=== PATIENT | female | born 1975 | race Caucasian/White ===

== ENCOUNTER 2016-12-12 15:01 | Inpatient (IN) | payer MEDICARE ==
[~2016-12-12] VITALS: Ht 172.7 cm; Wt 91.6 kg
[2016-12-12] MEDS ORDERED: CARV6.25 PO (15:19)
[2016-12-12] MEDS ORDERED: ASPI81EC97 PO (15:19)
[2016-12-12] MEDS ORDERED: ALPR1TAB2 PO (15:19)
[2016-12-12] MEDS ORDERED: LIP80 PO (15:19)
[2016-12-12] MEDS ORDERED: NITR0.4T2 SL (15:19)
[2016-12-12] MEDS ORDERED: ALBU0.0912 INH (15:19)
[2016-12-12] MEDS ORDERED: BUPR-160 PO (15:19)
[2016-12-12] MEDS ORDERED: FLUO20CA27 PO (15:19)
[2016-12-12] MEDS ORDERED: BUS5 PO (15:19)
[2016-12-12 15:21] VITALS: BP 169/115
--- NOTE | 2016-12-12 15:57 | NUR ---
PATIENT TO BED 2 AT THIS TIME.
--- NOTE | 2016-12-12 16:00 | NUR ---
PT CAME TO ER DUE TO LOST PSYCH MEDS ON THE BUS AND IS REQUESTING MED REFILL, PT. ALSO STATES SHES EXPERIENCING ANXIETY, CP, AND THE SHAKES, PT. REPORTS DOING METH AND DRINKING ALCOHOL LAST NIGHT.PT STATES THAT SHE HAS HEADACHE THAT RADIATES TO NECK AND HER BACK.PT IS AAOX4.DENIES SOB.HOB ELEVATED;NEEDS ATTENDED;SAFETY PRECAUTION INSTITUTED;MD AWARE OF PT'S CONDITION.
--- NOTE | 2016-12-12 16:14 | NUR ---
DR FANG AT BEDSIDE
[2016-12-12] MEDS ORDERED: NACL 0.9% 1,000 ML IV ONE (16:25)
[2016-12-12] MEDS ORDERED: LORazepam 2 MG/ML VIAL IVP ONE (16:25)
[2016-12-12 16:49] LABS: BASOPHILS # (AUTO) 0.2 K/uL (0.00-0.22); BASOPHILS % (AUTO) 3.3 % (0.0-2.0); EOSINOPHILS # (AUTO) 0.1 K/uL (0-0.4); EOSINOPHILS % (AUTO) 1.3 % (0.0-4.0); HEMATOCRIT 45.8 % (36-48); HEMOGLOBIN 15.4 g/dL (12.0-16.0); LYMPHOCYTES # (AUTO) 2.2 K/uL (2.5-16.5); LYMPHOCYTES % (AUTO) 36.6 % (20.5-51.1); MEAN CORPUSCULAR HEMOGLOBIN 29 pg (27-31); MEAN CORPUSCULAR HGB CONC 34 g/dL (33-37); MEAN CORPUSCULAR VOLUME 87 fL (80-94); MONOCYTES # (AUTO) 0.3 K/uL (0.8-1.0); MONOCYTES % (AUTO) 5.9 % (1.7-9.3); NEUTROPHILS # (AUTO) 3.1 K/uL (1.8-7.7); NEUTROPHILS % (AUTO) 52.9 % (42.2-75.2); PLATELET COUNT (AUTO) 256 K/uL (140-450); RED BLOOD CELL COUNT(AUTO) 5.25 MIL/uL (4.20-5.40); RED CELL DISTRIBUTION WIDTH 12.1 % (11.6-13.7); WHITE BLOOD COUNT (AUTO) 5.9 K/uL (4.8-10.8)
--- NOTE | 2016-12-12 16:50 | NUR ---
PT RESTING IN BED. NO S/S OF ACUTE DISTRESS. PT DENIES PAIN. AAOX4. IV SITE PATENT AND INTACT. PT ORIENTED TO ROOM. CALL LIGHT WITHIN REACH. SAFETY MEASURES ENSURED. WILL CONTINUE TO MONITOR.
[2016-12-12 17:11] LABS: PROTHROMBIN TIME 9.9 secs (10.8-13.4)
[2016-12-12 17:13] LABS: ANION GAP 15.6 (8-16); CALCIUM 9.1 mg/dL (8.5-10.1); CARBON DIOXIDE 24.4 mmol/L (21-32); CHLORIDE 99 mmol/L (98-107); CREATININE 0.8 mg/dL (0.6-1.3); GFR ARICAN-AMERICAN 101 mL/min (>90); GFR NON ARICAN-AMERICAN 83 mL/min (>90); GLUCOSE 76 mg/dL (74-106); SODIUM SERUM 136 mmol/L (136-145); UREA NITROGEN, BLOOD 13 mg/dL (7-18)
[2016-12-12 17:19] LABS: ACETAMINOPHEN < 0.5 ug/ml (10-30); ALANINE AMINOTRANSFERASE 47 U/L (12-78); ALBUMIN 4.7 g/dL (3.4-5.0); ALCOHOL, BLOOD < 3 mg/dL (<3); ALKALINE PHOSPHATASE 63 U/L (46-116); ASPARTATE AMINOTRANSFERASE 33 U/L (15-37); SALICYLATE < 2.8 mg/dL (2.8-20.0); TOTAL BILIRUBIN 1.9 mg/dL (0.0-1.0); TOTAL PROTEIN, SERUM 8.4 g/dL (6.4-8.2)
--- NOTE | 2016-12-12 17:20 | NUR ---
PT LYING ON BED COMFORTABLY;NO ACUTE DISTRESS NOTED AT THIS TIME.FRIEND AT BEDSIDE.WILL CONTINUE TO MONITOR PT.
[2016-12-12] MEDS ORDERED: POTASSIUM CHLORIDE 10 MEQ TABER PO ONE (17:30)
[2016-12-12 17:38] LABS: AMPHETAMINE, URINE POS. ng/ml (NEG <=1000); BARBITURATE, URINE NEG. ng/ml (NEG <=200); BENZODIAZEPINE, URINE NEG. ng/mL (NEG <=200); CANNABINOID, URINE POS. ng/mL (NEG <=50); COCAINE, URINE NEG. ng/mL (NEG <=300); OPIATE, URINE NEG. ng/mL (NEG <=2000); PHENCYCLIDINE SCREEN,URINE NEG. ng/mL (NEG <=25)
[2016-12-12] MEDS ORDERED: ENOXAPARIN 80 MG/0.8 ML SYR SUBQ ONE (17:40)
[2016-12-12] MEDS ORDERED: ASPIRIN 81 MG TAB.CHEW PO ONE (17:40)
--- NOTE | 2016-12-12 18:27 | NUR ---
REPORT GAVE TO FELICIA CURRY
--- NOTE | 2016-12-12 18:43 | NUR ---
Patient will be admitted to care of . Admited to tele. Will go to room 107-a. Belongings list completed. Report to ansley ma.
[2016-12-12 19:01] VITALS: BP 144/80
--- NOTE | 2016-12-12 19:23 | NUR ---
ENDORSED PLAN OF CARE TO NIGHT RN. PT REMAINS IN STABLE CONDITION.
--- NOTE | 2016-12-12 19:24 | NUR ---
RECEIVED PT IN STABLE CONDITION FROM FELICIA CURRY. NO SOB, NO SIGNS OF DISTRESS. PT IS AOX4, AMBULATORY. VS STABLE ON ROOM AIR. PT C/O 8/ PAIN, WILL MEDICATE PER MD ORDER. IV TO RT AC 20G PATENT, ASYMPTOMATIC, INTACT, SALINE LOCKED. PT HAS SCABS TO BILATERAL KNEES, LT THIGH, AND RT ANKLE. ORIENTED PT TO ROOM AND UNIT. PLAN OF CARE DISCUSSED WITH PT. SAFETY MEASURES IN PLACE. CALL LIGHT WITHIN REACH.WILL CONTINUE TO MONITOR.
[2016-12-12] MEDS ORDERED: ACETAMINOPHEN 325 MG TAB PO PRN (19:45)
[2016-12-12] MEDS ORDERED: ONDANSETRON 4 MG/2 ML VIAL IVP PRN (19:45)
[2016-12-12] MEDS ORDERED: ALPRAZolam 0.5 MG TAB PO SCH (19:45)
[2016-12-12] MEDS ORDERED: ALBUTEROL HFA MDI 90 MCG/ACTUATION 8 GM INH SCH (19:45)
[2016-12-12] MEDS ORDERED: NITROGLYCERIN 0.4 MG TAB SL PRN (19:45)
[2016-12-12] MEDS ORDERED: POTASSIUM CHLORIDE 10 MEQ TABER PO SCH (20:00)
[2016-12-12] MEDS ORDERED: NICOTINE TRANSD SYS 14 MG/24 HR PATCH TD SCH (20:27)
[2016-12-12] MEDS: ZOLPIDEM 5 MG TAB PO PRN (21:33)
[2016-12-12] MEDS: CARVEDILOL 6.25 MG TAB PO SCH (21:33)
[2016-12-12] MEDS: HYDROcodone/APAP 5/325 MG 1 TAB TAB PO PRN (21:33)
[2016-12-12] MEDS: busPIRone 5 MG TAB PO SCH (21:34)
--- NOTE | 2016-12-12 21:34 | NUR ---
PT TOLERATED DUE MEDS WELL. NO SOB, NO SIGNS OF DISTRESS, IV SITE ASYMPTOMATIC, INTACT, SALINE LOCKED. MEDICATED PT FOR PAIN AND GAVE SLEEP AID PER MD ORDER. GAVE PT FOOD AND DRINKS. PLAN OF CARE DISCUSSED WITH PT. SAFETY MEASURES IN PLACE. CALL LIGHT WITHIN REACH. WILL CONTINUE TO MONITOR.
[2016-12-12 22:34] VITALS: BP 123/78
[2016-12-13] VITALS: BP 117/87
--- NOTE | 2016-12-13 | NUR ---
NO DISTRESS/SOB/WHEEZING NOTED AT THIS TIME. NO INDICATION FOR MDI PRN TX.
--- NOTE | 2016-12-13 00:05 | NUR ---
VS STABLE ON ROOM AIR. NO SOB, NO SIGNS OF DISTRESS. IV SITE ASYMPTOMATIC, INTACT, SALINE LOCKED. PT DENIES PAIN AT THIS TIME. ROOM SMELLED LIKE CIGARETTE SMOKE, ASKED PT IF SHE WAS SMOKING. PT STATED SHE WAS BUT THEN FLUSHED IT DOWN THE TOILET. EDUCATED PT THAT THERE IS NO SMOKING ALLOWED IN THE HOSPITAL DUE TO LIVE OXYGEN IN ROOMS, GWEN CEDEÑO TOOK TILE DESIGNER FROM PT. EDUCATED PT THAT SMOKING INSIDE IS A FIRE HAZARD. WILL SPEAK WITH SECURITY TO TALK TO PT ABOUT SMOKING POLICY. PLAN OF CARE DISCUSSED WITH PT. SAFETY MEASURES IN PLACE. CALL LIGHT WITHIN REACH. WILL CONTINUE TO MONITOR.
--- NOTE | 2016-12-13 00:20 | NUR ---
SECURITY AT BEDSIDE SPEAKING WITH PT.
[2016-12-13 00:57] LABS: CREATINE KINASE MB 2.4 ng/mL (0-3.6)
--- NOTE | 2016-12-13 01:03 | NUR ---
CALL FROM LAB, PTS TROPONIN INCREASED TO 0.158, WILL PAGE MD TO MAKE AWARE.
--- NOTE | 2016-12-13 01:05 | NUR ---
PAGED MD CHAVEZ TO MAKE AWARE OF ELEVATED TROPONIN. WAITING FOR CALL BACK.
--- NOTE | 2016-12-13 01:09 | NUR ---
SPOKE WITH MD CHAVEZ. MADE AWARE OF 2ND TROPONIN INCREASED TO 0.158. CLARIFIED THAT PT HAS LOVENOX AND HAS AN ECHO ORDERED. NO OTHER ORDERS GIVEN. MD TO SEE PT TOMORROW.
--- NOTE | 2016-12-13 02:16 | NUR ---
PT ASLEEP IN BED. NO SOB, NO SIGNS OF DISTRESS. IV SITE ASYMPTOMATIC, INTACT, SALINE LOCKED. SAFETY MEASURES IN PLACE. CALL LIGHT WITHIN REACH. WILL CONTINUE TO MONITOR.
[2016-12-13 04:00] VITALS: BP 128/87
--- NOTE | 2016-12-13 04:00 | NUR ---
VS STABLE ON ROOM AIR. NO SOB, NO SIGNS OF DISTRESS. IV SITE ASYMPTOMATIC, INTACT, SALINE LOCKED. PT DENIES PAIN AT THIS TIME. PLAN OF CARE DISCUSSED WITH PT. SAFETY MEASURES IN PLACE. CALL LIGHT WITHIN REACH. WILL CONTINUE TO MONITOR.
--- NOTE | 2016-12-13 07:15 | NUR ---
ENDORSED PT IN STABLE CONDITION TO FELICIA DANG. ALL NEEDS HAVE BEEN MET AT THIS TIME.
--- NOTE | 2016-12-13 07:16 | NUR ---
RECEIVED PT AWAKE , AAOX4, NO S/S OF RESPIRATORY DISTRESS OR DISCOMFORT. WITH IV ACCESS ON RIGHT AC 20G ON SALINE LOCK [PATENT AND INTACT. SKIN IS INTACT, WITH SCABS ON BLE. DISCUSSED PLAN OF CARE, PT VERBALIZED UNDERSTANDING. CALL LIGHT WITHIN REACH, WILL CONTINUE TO MONITOR.
[2016-12-13 07:30] LABS: BASOPHILS # (AUTO) 0.1 K/uL (0.00-0.22); BASOPHILS % (AUTO) 2.3 % (0.0-2.0); EOSINOPHILS # (AUTO) 0.1 K/uL (0-0.4); EOSINOPHILS % (AUTO) 2.4 % (0.0-4.0); HEMATOCRIT 41.5 % (36-48); HEMOGLOBIN 14.3 g/dL (12.0-16.0); LYMPHOCYTES # (AUTO) 3.1 K/uL (2.5-16.5); MEAN CORPUSCULAR HEMOGLOBIN 30 pg (27-31); MEAN CORPUSCULAR HGB CONC 34 g/dL (33-37); MEAN CORPUSCULAR VOLUME 88 fL (80-94); MONOCYTES # (AUTO) 0.4 K/uL (0.8-1.0); NEUTROPHILS # (AUTO) 1.7 K/uL (1.8-7.7); NEUTROPHILS % (AUTO) 32.3 % (42.2-75.2); PLATELET COUNT (AUTO) 226 K/uL (140-450); RED BLOOD CELL COUNT(AUTO) 4.74 MIL/uL (4.20-5.40); RED CELL DISTRIBUTION WIDTH 12.5 % (11.6-13.7); WHITE BLOOD COUNT (AUTO) 5.4 K/uL (4.8-10.8)
--- NOTE | 2016-12-13 07:54 | NUR ---
PATIENT HAS BEEN SCREENED AND CATEGORIZED MODERATE RISK. PATIENT WILL BE SEEN WITHIN 3-5 DAYS OF ADMISSION. 12/15/16 TO 12/17/[address]
[2016-12-13 07:57] LABS: MAGNESIUM 2.1 mg/dL (1.8-2.4)
[2016-12-13 08:00] VITALS: BP 113/74
[2016-12-13 08:02] LABS: ANION GAP 11.1 (8-16); CALCIUM 8.3 mg/dL (8.5-10.1); CARBON DIOXIDE 27.1 mmol/L (21-32); CREATININE 0.7 mg/dL (0.6-1.3); POTASSIUM 4.2 mmol/L (3.5-5.1)
[2016-12-13 08:08] LABS: CHOL/HDL RATIO 2.7 (1-4.5)
[2016-12-13 08:44] LABS: CREATINE KINASE MB 2.5 ng/mL (0-3.6)
[2016-12-13] MEDS ORDERED: NON-FORMULARY ITEM (Bupropion HCl* (Wellbutrin Xl*) 150 MG) PO SCH (09:00)
--- NOTE | 2016-12-13 09:13 | NUR ---
NOTIFIED DR. CHAVEZ REGARDING TROPONIN LEVEL, NO NEW ORDERS. CL;A Addendum: 12/13/16 at 1055 by Rhonda Dailey RN CLARIFIED WITH DR. CHAVEZ REGARDING ALBUTEROL AND NITROGLYCERIN. WILL INFORM BLANCHE OF PHARMACY
[2016-12-13] MEDS: FOLIC ACID 1 MG TAB PO SCH (09:40)
[2016-12-13] MEDS: THIAMINE 100 MG TAB PO SCH (09:41)
[2016-12-13] MEDS: MULTIVITAMIN 1 TAB PO SCH (09:41)
[2016-12-13] MEDS: FLUoxetine 20 MG CAP PO SCH (09:41)
[2016-12-13] MEDS: ATORVASTATIN 80 MG TAB PO SCH (09:41)
[2016-12-13] MEDS: ECOTRIN 81 MG TABEC PO SCH (09:41)
[2016-12-13] MEDS: CARVEDILOL 6.25 MG TAB PO SCH ×2 (09:41→21:00)
[2016-12-13] MEDS: busPIRone 5 MG TAB PO SCH ×2 (09:41→21:11)
--- NOTE | 2016-12-13 09:41 | NUR ---
DUE MEDS GIVEN, PT TOLERATED WELL. CALL LIGHT WITH IN REACH, WILL CONTINUE TO MONITOR.
[2016-12-13] MEDS: NICOTINE TRANSD SYS 14 MG/24 HR PATCH TD SCH (09:42)
[2016-12-13] MEDS: ENOXAPARIN 40 MG/0.4 ML SYR SUBQ SCH (09:47)
--- NOTE | 2016-12-13 10:21 | NUR ---
SPOKE WITH DR ASHVIN LLOYD TO D/C PATIENT HOME AND F/U WITH IN ONE WEEK .
[2016-12-13] MEDS: HYDROcodone/APAP 5/325 MG 1 TAB TAB PO PRN ×2 (10:32→21:11)
[2016-12-13] MEDS ORDERED: ALBUTEROL 0.083% 2.5 MG/3 ML NEBU INH PRN (10:35)
[2016-12-13 12:00] VITALS: BP 102/50
--- NOTE | 2016-12-13 12:48 | NUR ---
PT ASLEEP, NO COMPLAINTS AT THIS TIME. CALL LIGHT WITHIN REACH, WILL CONTINUE TO MONITOR.
--- NOTE | 2016-12-13 14:35 | NUR ---
DR ONEAL AT NURSES' STATION
[2016-12-13] MEDS: ALPRAZolam 0.5 MG TAB PO PRN (15:54)
[2016-12-13 16:00] VITALS: BP 105/79
--- NOTE | 2016-12-13 16:57 | NUR ---
DR CHAVEZ AT BEDSIDE
--- NOTE | 2016-12-13 17:49 | NUR ---
PT AWAKE TALKING TO RELATIVE ON THE PHONE, NO COMPLAINTS AT THIS TIME. ALL NEEDS MET, WILL CONTINUE TO MONITOR.
--- NOTE | 2016-12-13 19:02 | NUR ---
RECEIVED PT FROM LAURENCE DUARTE FOR CONTINUITY OF CARE AT BEDSIDE. PT NOTED STABLE WATCHING TV AND EATING SANDWICH.
--- NOTE | 2016-12-13 19:26 | NUR ---
ENDORSED PT TO FELICIA MONTAÑO IN STABLE CONDITION FOR CONTINUITY OF CARE.
--- NOTE | 2016-12-13 19:47 | NUR ---
SHIFT ASSESSMENT DONE. PT IS A/O X4, ABLE TO VERBALIZE NEEDS AND FOLLOWS COMMAND. NO ACUTE DISTRESS NOTED. DISCUSSED PLAN OF CARE WITH PT, VERBALIZED UNDERSTANDING. VITAL SIGNS TAKEN, ARE STABLE. NOTE BP AT 108/62 (S/D), ASYMPTOMATIC. PT IS AFEBRILE, NOTED ON ROOM AIR WITH OXYGEN SATURATION AT 98%. DENIES N/V/D, NO SOB, OR DENIES CHEST PAIN. NOTED LUNG SOUNDS ARE CLEAR, BOWEL SOUNDS ARE ACTIVE. SKIN INTACT. IV ACCESS TO RT AC #20G, PATENT AND INTACT, SALINE LOCKED. PT IS IN STABLE CONDITION. SAFETY PRECAUTIONS IMPLEMENTED. CALL LIGHT WITHIN EASY REACH. WILL CONTINUE TO MONITOR PT.
[2016-12-13 20:00] VITALS: BP 108/62
[2016-12-13] MEDS: buPROPion 75 MG TAB PO SCH (21:11)
--- NOTE | 2016-12-13 21:11 | NUR ---
PROVIDED PT WITH PAIN MEDICATION NEEDED, SEE eMAR. PT DENIES CHEST PAIN. CALL LIGHT STILL WITHIN REACH.
[2016-12-13] MEDS: ZOLPIDEM 5 MG TAB PO PRN (21:14)
--- NOTE | 2016-12-13 22:50 | NUR ---
PT NOTED SLEEPING, NO S/S OF DISTRESS. CALL LIGHT WITHIN REACH.
[2016-12-14] VITALS: BP 105/62
--- NOTE | 2016-12-14 00:25 | NUR ---
PT VSS REMAIN STABLE, NO ACUTE DISTRESS NOTED. WILL CONTINUE TO MONITOR. CALL LIGHT WITHIN REACH.
--- NOTE | 2016-12-14 02:25 | NUR ---
PT REMAINS ASLEEP, NO S/S OF DISTRESS.
[2016-12-14 04:00] VITALS: BP 114/68
--- NOTE | 2016-12-14 04:10 | NUR ---
VS ARE STABLE, PT C.O. PAIN. MEDICATION PROVIDED, SEE eMAR. CALL LIGHT WITHIN REACH.
[2016-12-14] MEDS: HYDROcodone/APAP 5/325 MG 1 TAB TAB PO PRN ×2 (04:20→18:21)
[2016-12-14 07:03] LABS: BASOPHILS # (AUTO) 0.1 K/uL (0.00-0.22); BASOPHILS % (AUTO) 2.2 % (0.0-2.0); EOSINOPHILS # (AUTO) 0.1 K/uL (0-0.4); EOSINOPHILS % (AUTO) 2.4 % (0.0-4.0); HEMATOCRIT 42.8 % (36-48); HEMOGLOBIN 14.1 g/dL (12.0-16.0); LYMPHOCYTES # (AUTO) 2.4 K/uL (2.5-16.5); LYMPHOCYTES % (AUTO) 47.9 % (20.5-51.1); MEAN CORPUSCULAR HEMOGLOBIN 29 pg (27-31); MEAN CORPUSCULAR HGB CONC 33 g/dL (33-37); MEAN CORPUSCULAR VOLUME 89 fL (80-94); MONOCYTES # (AUTO) 0.5 K/uL (0.8-1.0); MONOCYTES % (AUTO) 10.2 % (1.7-9.3); NEUTROPHILS # (AUTO) 1.8 K/uL (1.8-7.7); NEUTROPHILS % (AUTO) 37.3 % (42.2-75.2); PLATELET COUNT (AUTO) 365 K/uL (140-450); RED BLOOD CELL COUNT(AUTO) 4.84 MIL/uL (4.20-5.40); RED CELL DISTRIBUTION WIDTH 12.4 % (11.6-13.7); WHITE BLOOD COUNT (AUTO) 4.9 K/uL (4.8-10.8)
--- NOTE | 2016-12-14 07:25 | NUR ---
ENDORSED PT TO LAURENCE DUARTE FOR CONTINUITY OF CARE.
--- NOTE | 2016-12-14 07:26 | NUR ---
RECEIVED PT FROM FELICIA MONTAÑO ASLEEP BUT EASILY AWAKEN, NO SIGNS OF RESPIRATORY DISTRESS, PT ON ROOM AIR. WITH IV ACCESS ON RIGHT AC 20G ON SALINE LOCK PATENT AND INTACT. SKIN IS INTACT. NO COMPLAINTS OF PAIN AT THIS TIME. DISCUSSED PLAN OF CARE, PT VERBALIZED UNDERSTANDING. CALL LIGHT WITHIN REACH, WILL CONTINUE TO MONITOR.
[2016-12-14 07:43] LABS: ANION GAP 12.4 (8-16); CARBON DIOXIDE 25.1 mmol/L (21-32); CREATININE 0.8 mg/dL (0.6-1.3); POTASSIUM 3.5 mmol/L (3.5-5.1)
[2016-12-14 08:00] VITALS: BP 118/80
[2016-12-14] MEDS: FOLIC ACID 1 MG TAB PO SCH (09:03)
[2016-12-14] MEDS: busPIRone 5 MG TAB PO SCH ×2 (09:03→22:13)
[2016-12-14] MEDS: CARVEDILOL 6.25 MG TAB PO SCH ×2 (09:03→22:13)
[2016-12-14] MEDS: ECOTRIN 81 MG TABEC PO SCH (09:03)
[2016-12-14] MEDS: FLUoxetine 20 MG CAP PO SCH (09:03)
[2016-12-14] MEDS: buPROPion 75 MG TAB PO SCH ×2 (09:04→21:00)
[2016-12-14] MEDS: MULTIVITAMIN 1 TAB PO SCH (09:04)
[2016-12-14] MEDS: ATORVASTATIN 80 MG TAB PO SCH (09:04)
[2016-12-14] MEDS: NICOTINE TRANSD SYS 14 MG/24 HR PATCH TD SCH (09:05)
[2016-12-14] MEDS: ENOXAPARIN 40 MG/0.4 ML SYR SUBQ SCH (09:10)
[2016-12-14] MEDS: THIAMINE 100 MG TAB PO SCH (09:13)
--- NOTE | 2016-12-14 09:25 | NUR ---
DUE MEDS GIVEN, PT TOLERATED WELL. WITH RELATIVES AT BEDSIDE. CALL LIGHT WITHIN REACH, WILL CONTINUE TO MONITOR.
--- NOTE | 2016-12-14 10:02 | NUR ---
NOTIFIED BY LAB REGARDING MRSA NARES. PROTOCOL IN PLACE.
--- NOTE | 2016-12-14 10:37 | NUR ---
PT AWAKE TALKING TO RELATIVES AT BEDSIDE. ALL NEEDS MET AT THIS TIME. CALL LIGHT WITHIN REACH, WILL CONTINUE TO MONITOR.
[2016-12-14] MEDS: CHLORHEXADINE GLUC 2% CLOTH TP SCH (11:54)
[2016-12-14] MEDS: MUPIROCIN 2% OINT 22 GM TUBE TP SCH (11:54)
[2016-12-14 12:00] VITALS: BP 116/73
--- NOTE | 2016-12-14 12:40 | NUR ---
NICOTINE PATCH FELL OFF WHEN PT WENT TO SHOWER. APPLIED ANOTHER ONE. ALL NEEDS MET AT THIS TIME, WILL CONTINUE TO MONITOR.
--- NOTE | 2016-12-14 14:44 | NUR ---
PT SITTING ON BED TALKING TO RELATIVES. ALL NEEDS MET AT THIS TIME. CALL LIGHT WITHIN REACH, WILL CONTINUE TO MONITOR.
[2016-12-14 16:00] VITALS: BP 109/67
--- NOTE | 2016-12-14 16:05 | NUR ---
DR CHAVEZ AT BEDSIDE TO SEE PT.
--- NOTE | 2016-12-14 16:53 | NUR ---
PAGED DR CHAVEZ REGARDING TROPONIN LEVEL.
--- NOTE | 2016-12-14 16:54 | NUR ---
NOTIFIED DR CHAVEZ REGARDING TROPONIN, NO NEW ORDERS
[2016-12-14] MEDS: ALPRAZolam 0.5 MG TAB PO PRN (18:21)
--- NOTE | 2016-12-14 18:44 | NUR ---
PT COMPLAINED OF PAIN ON IV SITE AT RIGHT AC, CHANGED IV TO LEFT HAND G22 ON SALINE LOCK, PATENT AND INTACT.
--- NOTE | 2016-12-14 19:31 | NUR ---
ENDORSED PT TO FELICIA COCHRAN FOR CONTINUITY OF CARE IN STABLE CONDITION
--- NOTE | 2016-12-14 19:35 | NUR ---
RECEIVED PT FROM LAURENCE DUARTE PT IS AAOX4 AMBULATORY ON TELEMETRY SR , VOIDING WELL HL ON LEFT HAND PATENT INITIAL ASSESSMENT DONE
[2016-12-14 20:00] VITALS: BP 112/73
--- NOTE | 2016-12-14 22:00 | NUR ---
PT SLEEPING WELL KATHRYN TELMETRY SR NOT DISTRESS NOTED.
[2016-12-14] MEDS: ENOXAPARIN 100 MG/ML SYR SUBQ SCH (22:19)
[2016-12-14] MEDS: ZOLPIDEM 5 MG TAB PO PRN (22:21)
[2016-12-15] VITALS: BP 92/58
--- NOTE | 2016-12-15 01:00 | NUR ---
REMAIN STBLE NOT DISTRESS NOTED ON TELEMETRY SR
[2016-12-15 04:00] VITALS: BP 90/54
--- NOTE | 2016-12-15 04:00 | NUR ---
SPONGE BATH GIVEN LINEN CHANGE NOT DISTRESS NOTED ON TELE SB
--- NOTE | 2016-12-15 06:52 | NUR ---
PT SLEEPING DENIES ANY PAIN OR DISCOMFORT
[2016-12-15 06:53] LABS: BASOPHILS # (AUTO) 0.2 K/uL (0.00-0.22); BASOPHILS % (AUTO) 4.4 % (0.0-2.0); EOSINOPHILS # (AUTO) 0.1 K/uL (0-0.4); EOSINOPHILS % (AUTO) 2.3 % (0.0-4.0); HEMATOCRIT 40.1 % (36-48); HEMOGLOBIN 13.7 g/dL (12.0-16.0); LYMPHOCYTES # (AUTO) 2.9 K/uL (2.5-16.5); LYMPHOCYTES % (AUTO) 48.6 % (20.5-51.1); MEAN CORPUSCULAR HEMOGLOBIN 30 pg (27-31); MEAN CORPUSCULAR HGB CONC 34 g/dL (33-37); MEAN CORPUSCULAR VOLUME 87 fL (80-94); MONOCYTES # (AUTO) 0.4 K/uL (0.8-1.0); MONOCYTES % (AUTO) 7.9 % (1.7-9.3); NEUTROPHILS % (AUTO) 36.8 % (42.2-75.2); PLATELET COUNT (AUTO) 216 K/uL (140-450); RED CELL DISTRIBUTION WIDTH 12.1 % (11.6-13.7); WHITE BLOOD COUNT (AUTO) 5.6 K/uL (4.8-10.8)
--- NOTE | 2016-12-15 07:12 | NUR ---
ASSUMED CONTINUITY OF CARE. NO SIGNS AND SYMPTOMS OF ACUTE DISTRESS NOTED. INITIAL ASSESSMENT DONE. KEEP COMFORTABLE ON BED. EXPLAINED DIAGNOSIS, PLAN OF CARE, PAIN MANAGEMENT TEACHING, CONTACT ISOLATION PRECAUTION, USE OF CALL LIGHT/BED/TV/BATHROOM. VERBALIZED UNDERSTANDING. CALL LIGHT WITHIN REACH.
[2016-12-15 07:14] LABS: ANION GAP 10.5 (8-16); CALCIUM 8.2 mg/dL (8.5-10.1); CARBON DIOXIDE 27.1 mmol/L (21-32); CREATININE 0.8 mg/dL (0.6-1.3); POTASSIUM 3.6 mmol/L (3.5-5.1)
--- NOTE | 2016-12-15 07:25 | NUR ---
PAGED DR. CHAVEZ REGARDING CRITICAL TROP 0.126. LEFT CALL BACK NUMBER. INFORMED CHARGE NURSE EMERALD FROST.
--- NOTE | 2016-12-15 07:28 | NUR ---
DR. CHAVEZ CALLED, INFORMED OF PT. CRITICAL LAB RESULTS OF TROP 0.126. DR. CHAVEZ SAID TO CALL DAMION JACK AND INFORM HIM OF THE RESULTS.
--- NOTE | 2016-12-15 07:29 | NUR ---
PAGED DR. ONEAL AT AND SPOKE TO BEN. LEFT CALL BACK NUMBER. INFORMED CHARGE NURSE EMERALD FROST.
[2016-12-15 08:00] VITALS: BP 126/63
[2016-12-15] MEDS: FOLIC ACID 1 MG TAB PO SCH (08:50)
[2016-12-15] MEDS: ECOTRIN 81 MG TABEC PO SCH (08:51)
[2016-12-15] MEDS: ATORVASTATIN 80 MG TAB PO SCH (08:51)
[2016-12-15] MEDS: FLUoxetine 20 MG CAP PO SCH (08:51)
[2016-12-15] MEDS: MULTIVITAMIN 1 TAB PO SCH (08:51)
[2016-12-15] MEDS: THIAMINE 100 MG TAB PO SCH (08:51)
[2016-12-15] MEDS: busPIRone 5 MG TAB PO SCH ×2 (08:51→20:36)
[2016-12-15] MEDS: buPROPion 75 MG TAB PO SCH ×2 (08:53→20:37)
[2016-12-15] MEDS: NICOTINE TRANSD SYS 14 MG/24 HR PATCH TD SCH (08:53)
[2016-12-15] MEDS: ENOXAPARIN 100 MG/ML SYR SUBQ SCH ×2 (08:54→20:39)
[2016-12-15] MEDS: CARVEDILOL 6.25 MG TAB PO SCH ×2 (08:54→20:36)
[2016-12-15] MEDS: ALPRAZolam 0.5 MG TAB PO PRN ×2 (09:44→21:10)
[2016-12-15 12:00] VITALS: BP 121/79
[2016-12-15] MEDS ORDERED: REGADENOSON 0.4 MG/5 ML SYR IV SCH (12:30)
[2016-12-15] MEDS: MUPIROCIN 2% OINT 22 GM TUBE TP SCH (12:38)
[2016-12-15] MEDS: CHLORHEXADINE GLUC 2% CLOTH TP SCH (12:38)
--- NOTE | 2016-12-15 12:48 | NUR ---
CAMILA JACKESH CAME, INFORMED ONCE AGAIN OF CRITICAL LAB RESULTS OF TROP 0.126. NO ORDER RECEIVED. INFORMED CHARGE NURSE EMERALD FROST.
[2016-12-15 16:00] VITALS: BP 99/62
--- NOTE | 2016-12-15 16:02 | NUR ---
SPOKE WITH STORMY FROM [facility]. SHE SAID JUST FAX FACE SHEET TO THEM AT [phone], THE REVIEW GOES TO [facility]. FAXED INITIAL REVIEW TO [facility] [phone] PHONE [phone]
[2016-12-15] MEDS: HYDROcodone/APAP 5/325 MG 1 TAB TAB PO PRN (18:50)
--- NOTE | 2016-12-15 18:54 | NUR ---
NO ACUTE DISTRESS NOTED. IN STABLE CONDITION. ENDORSED TO CHARGE NURSE EMERALD FROST.
--- NOTE | 2016-12-15 19:30 | NUR ---
RECEIVED REPORT FROM CHARGE NURSE MELISSA, PATIENT IS AAOX4, SITTING UP IN BED, ON ROOM AIR, NO SOB OR SIGN OF DISTRESS AT THIS TIME, PATIENT HAS IV TO LEFT HAND 22G PATENT INTACT, SALINE LOCKED. PATIENT IS ON CONTACT PRECAUTIONS, DISCUSSED PLAN OF CARE WITH PATIENT, PATIENT VERBALIZED UNDERSTANDING, SAFETY MEASURES CHECKED, CALL LIGHT WITHIN REACH. WILL CONTINUE TO MONITOR.
[2016-12-15 20:00] VITALS: BP 140/59
--- NOTE | 2016-12-15 20:28 | NUR ---
NO DISTRESS/SOB/WHEEZING NOTED AT THIS TIME. NO INDICATION FOR HHN PRN TX.
--- NOTE | 2016-12-15 20:40 | NUR ---
PM MEDS ADMINISTERED, PATIENT TOLERATED WELL, WILL CONTINUE TO MONITOR
[2016-12-15] MEDS ORDERED: HAB14T TD (21:11)
[2016-12-15] MEDS ORDERED: LIP80 PO (21:11)
[2016-12-15] MEDS ORDERED: NITR0.4T2 SL (21:11)
[2016-12-15] MEDS: ZOLPIDEM 5 MG TAB PO PRN (21:11)
[2016-12-15] MEDS ORDERED: ALPR0.5T20 PO (21:11)
[2016-12-15] MEDS ORDERED: ZOLP5TAB1 PO (21:11)
[2016-12-15] MEDS ORDERED: MULT-405 PO (21:11)
[2016-12-15] MEDS ORDERED: CARV6.25 PO (21:11)
[2016-12-15] MEDS ORDERED: FLUO20CA27 PO (21:11)
[2016-12-15] MEDS ORDERED: BUPR-160 PO (21:11)
[2016-12-15] MEDS ORDERED: ASPI81EC97 PO (21:11)
[2016-12-15] MEDS ORDERED: FOLI1TAB90 PO (21:11)
[2016-12-15] MEDS ORDERED: BACTO TP (21:11)
[2016-12-15] MEDS ORDERED: THIA-8 PO (21:11)
[2016-12-15] MEDS ORDERED: ALBU0.0912 INH (21:11)
[2016-12-15] MEDS ORDERED: BUS5 PO (21:11)
--- NOTE | 2016-12-15 21:15 | NUR ---
DR ONEAL IN TO SEE PATIENT. WILL F/U WITH ORDERS
[2016-12-16] VITALS: BP 99/58
--- NOTE | 2016-12-16 00:19 | NUR ---
VITAL SIGN STABLE, NO SOB OR SIGN OF DISTRESS, PATIENT RESTING COMFORTABLE IN BED, CALL LIGHT WITHIN REACH. WILL CONTINUE TO MONITOR.
--- NOTE | 2016-12-16 01:30 | NUR ---
PATIENT SLEEPING COMFORTABLE IN BED, NO SOB OR SIGN OF DISTRESS AT THIS TIME, CALL LIGHT WITHIN REACH. WILL CONTINUE TO MONITOR.
[2016-12-16 04:00] VITALS: BP 120/80
--- NOTE | 2016-12-16 04:19 | NUR ---
VITAL SIGNS STABLE, PATIENT SLEEPING, NO SOB OR SIGN OF DISTRESS, CALL LIGHT WITHIN REACH. WILL CONTINUE TO MONITOR.
--- NOTE | 2016-12-16 05:19 | NUR ---
PATIENT REFUSED LAB DRAW THIS MORNING, INTEGRATED PROGRAM TEACHER STATED SHE WILL COME BACK AND TRY AGAIN LATER.
--- NOTE | 2016-12-16 07:30 | NUR ---
RECEIVED ON BED AAOX4. NO SOB NOTED. NO C/O PAIN AT THIS TIME. IV TO LT HAND PATENT AND INTACT. CHEST CLEAR. ABDOMEN SOFT, BOWEL SOUNDS PRESENT. NO EDEMA NOTED. INSTRUCTED PT TO CALL FOR ASSISTANCE, CALL LIGHT WITHIN REACH. PT VERBALIZED UNDERSTANDING.
--- NOTE | 2016-12-16 07:38 | NUR ---
ENDORSED PATIENT TO DAY RN AT BEDSIDE, PATIENT IN STABLE CONDITION
[2016-12-16 08:00] VITALS: BP 107/72
[2016-12-16 08:43] LABS: BASOPHILS # (AUTO) 0.2 K/uL (0.00-0.22); EOSINOPHILS # (AUTO) 0.1 K/uL (0-0.4); EOSINOPHILS % (AUTO) 1.5 % (0.0-4.0); HEMATOCRIT 42.7 % (36-48); HEMOGLOBIN 14.7 g/dL (12.0-16.0); LYMPHOCYTES % (AUTO) 36.6 % (20.5-51.1); MEAN CORPUSCULAR HEMOGLOBIN 30 pg (27-31); MEAN CORPUSCULAR HGB CONC 34 g/dL (33-37); MEAN CORPUSCULAR VOLUME 86 fL (80-94); MONOCYTES # (AUTO) 0.5 K/uL (0.8-1.0); MONOCYTES % (AUTO) 8.9 % (1.7-9.3); NEUTROPHILS # (AUTO) 2.7 K/uL (1.8-7.7); PLATELET COUNT (AUTO) 228 K/uL (140-450); RED BLOOD CELL COUNT(AUTO) 4.97 MIL/uL (4.20-5.40); WHITE BLOOD COUNT (AUTO) 5.5 K/uL (4.8-10.8)
[2016-12-16] MEDS: NICOTINE TRANSD SYS 14 MG/24 HR PATCH TD SCH ×2 (09:00→09:42)
[2016-12-16] MEDS: CARVEDILOL 6.25 MG TAB PO SCH (09:00)
[2016-12-16] MEDS: ATORVASTATIN 80 MG TAB PO SCH (09:34)
[2016-12-16] MEDS: MULTIVITAMIN 1 TAB PO SCH (09:35)
[2016-12-16] MEDS: FLUoxetine 20 MG CAP PO SCH (09:35)
[2016-12-16] MEDS: busPIRone 5 MG TAB PO SCH (09:35)
[2016-12-16] MEDS: THIAMINE 100 MG TAB PO SCH (09:35)
[2016-12-16] MEDS: HYDROcodone/APAP 5/325 MG 1 TAB TAB PO PRN (09:36)
[2016-12-16] MEDS: ECOTRIN 81 MG TABEC PO SCH (09:36)
[2016-12-16] MEDS: buPROPion 75 MG TAB PO SCH (09:37)
[2016-12-16] MEDS: ENOXAPARIN 100 MG/ML SYR SUBQ SCH (09:38)
[2016-12-16] MEDS: FOLIC ACID 1 MG TAB PO SCH (09:40)
[2016-12-16 09:47] LABS: ANION GAP 14.7 (8-16); CALCIUM 8.7 mg/dL (8.5-10.1); CARBON DIOXIDE 25.8 mmol/L (21-32); CREATININE 0.8 mg/dL (0.6-1.3); POTASSIUM 3.5 mmol/L (3.5-5.1)
--- NOTE | 2016-12-16 10:30 | NUR ---
PT STATED SHE IS FEELING DIZZY FROM THE [place] THAT SHE TOOK EARLIER. VITAL SIGNS STABLE. NO SOB NOTED. WILL CONTINUE TO MONITOR.
--- NOTE | 2016-12-16 11:30 | NUR ---
PT STATED SHE WILL BE ABLE TO GO HOME AFTER SHE HAVE HER LUNCH. PT ALSO STATED SHE WILL NEED TWO BUS PASSES TO TAKE HER TO [place] [employer] [facility] AND FROM THERE ANOTHER ONE TO TAKE HER TO [place]. ALL FROM ADMIN MADE AWARE. DISCHARGE INSTRUCTIONS AND PRESCRIPTIONS GIVEN TO PT WHICH VERBALIZED FULL UNDERSTANDING OF THE INSTRUCTION GIVEN AND THE NEED TO FOLLOW UP WITH PCP WITHIN 7 DAYS. PT ALSO STATED SHE WILL GO TO A REHAB CENTER FOR ALCOHOLICS AFTER SHE PICKS UP HER STUFF IN [place]. ARM BANDS AND IV REMOVED, CANNULA TIP INTACT.
--- NOTE | 2016-12-16 13:00 | NUR ---
PT FOUND HER PAIR OF BLACK KEDS UNDER THE BED. PT ALREADY FINISHED HER LUNCH, FOOD CONSUMED 100%, TOLERATED WELL. PT WANTED TO KEEP HER ARM BANDS (EXTRA ONE GIVEN), SO SHE CAN SAY TO THE REHAB CENTER THAT SHE WAS ADMITTED IN [facility]. PROVIDED PT THE 2 BUS PASSES. PRINT OUT OF [facility] BUS/TRANSIT LOCATION ALSO PROVIDED.
--- NOTE | 2016-12-16 13:23 | NUR ---
PT ESCORTED TO THE FRONT LOBBY BY ELECTRICAL EQUIPMENT TECHNICIAN, PT AMBULATORY. NO SOB NOTED. NO COMPLAINTS MADE. PT IS DISCHARGE HOME TO SELF IN STABLE CONDITION, AAOX4. ALL QUESTIONS ANSWERED.
--- NOTE | 2016-12-16 14:02 | NUR ---
FAXED CONCURRENT REVIEW AND DISCHARGE SUMMARY TO [facility] [phone] PHONE [phone]
== END 2016-12-16 13:23 | disposition home or self-care (01) | DRG 775 ==
LOC: MED 15:01 → MTU 18:08
PROVIDERS: ADMIT Preventive Medicine Preventive Medicine/Occupational Environmental Medicine; ATTEND Preventive Medicine Preventive Medicine/Occupational Environmental Medicine
DX: F10.239 Alcohol dependence with withdrawal, unspecified (principal); E83.52 Hypercalcemia; I10 Essential (primary) hypertension; J45.909 Unspecified asthma, uncomplicated; E78.5 Hyperlipidemia, unspecified; F41.9 Anxiety disorder, unspecified; F15.10 Other stimulant abuse, uncomplicated; R51 Headache; I25.10 Atherosclerotic heart disease of native coronary artery without angina pectoris; R74.0 Nonspecific elevation of levels of transaminase and lactic acid dehydrogenase [LDH]; R00.0 Tachycardia, unspecified; F12.10 Cannabis abuse, uncomplicated; Z22.322 Carrier or suspected carrier of Methicillin resistant Staphylococcus aureus; Z79.82 Long term (current) use of aspirin; Z79.899 Other long term (current) drug therapy
CPT/HCPCS: 36415; 71010; 80048; 80053; 80305; 81025; 82550; 82553; 83735; 84100; 84484; 85025; 85610; 85730; 87081; 93005; 96361; 96372; 96374; 99285; G0480; G0482; J1650; J2060; J2785; J7030; Q0092

== ENCOUNTER 2017-01-17 02:46 | Emergency (ER) | payer MEDICARE ==
[~2017-01-17] VITALS: Ht 172.7 cm; Wt 99.8 kg
[~2017-01-17 02:46] MED LIST: ALPRAZOLAM0.5 M1 PO; AMBIEN5 M1 PO; ASPIR 8181 MG PO; BACTROBAN 2%20 MG/GM TP; BUSPAR5 M1 PO; COREG6.25 MG PO; HABITROL T14 MG/24 H TD; LIPITOR80 MG PO; NATURE'S BLEND F1 M1 PO; NATURE'S BLEND100 M2 PO; NITROSTAT0.4 M1 SL; PROVENTIL HFA M18 GM INH; PROZAC20 M2 PO; TAB-A-VITE1 TA3 PO; WELLBUTRIN XL150 MG PO; XANAX1 MG PO
[2017-01-17 03:08] VITALS: BP 145/90
--- NOTE | 2017-01-17 03:36 | NUR ---
PT TAKEN TO DHRUVAY FROM SATHISH
--- NOTE | 2017-01-17 03:41 | NUR ---
PT RETURN FROM XRAY TO LOBBY
--- NOTE | 2017-01-17 04:38 | NUR ---
PT TAKEN TO OF3
--- NOTE | 2017-01-17 04:51 | NUR ---
Dr. Anton evaluating patient
[2017-01-17] MEDS ORDERED: predniSONE 20 MG TAB PO ONE (04:55)
[2017-01-17] MEDS ORDERED: ALBUTEROL SULFATE/IPRATROPIU 3 ML SOL IH ONE ×2 (04:55→05:50)
--- NOTE | 2017-01-17 05:12 | NUR ---
RT WITH PATIENT FOR TREATMENT
--- NOTE | 2017-01-17 05:55 | NUR ---
RT WITH PATIENT FOR 2ND TREATMENT
[2017-01-17 06:07] VITALS: BP 109/76
--- NOTE | 2017-01-17 06:07 | NUR ---
Patient discharged with v/s stable. Written and verbal after care instructions given and explained. Patient alert, oriented and verbalized understanding of instructions. Ambulatory with steady gait. All questions addressed prior to discharge. ID band removed. Patient advised to follow up with PMD. Rx of PREDNISONE, ALBUTEROL given. Patient educated on indication of medication including possible reaction and side effects. Opportunity to ask questions provided and answered.
== END 2017-01-17 06:07 | disposition home or self-care (01) ==
LOC: MED 02:46
DX: J45.909 Unspecified asthma, uncomplicated (principal); R03.0 Elevated blood-pressure reading, without diagnosis of hypertension; Z79.82 Long term (current) use of aspirin
CPT/HCPCS: 71010; 94640; 99284; J7512; J7620

== ENCOUNTER 2017-02-02 19:56 | Emergency (ER) | payer MEDICARE ==
[~2017-02-02] VITALS: Ht 172.7 cm; Wt 86.4 kg
[~2017-02-02 19:56] MED LIST changes: +ALBU0.0912 INH; +ALPR0.5T20 PO; -ALPRAZOLAM0.5 M1 PO; -AMBIEN5 M1 PO; +ASPI81EC97 PO; -ASPIR 8181 MG PO; +BACTO TP; -BACTROBAN 2%20 MG/GM TP; +BUPR-160 PO; +BUS5 PO; -BUSPAR5 M1 PO; +CARV6.25 PO; -COREG6.25 MG PO; +FLUO20CA27 PO; +FOLI1TAB90 PO; +HAB14T TD; -HABITROL T14 MG/24 H TD; +LIP80 PO; -LIPITOR80 MG PO; +MULT-405 PO; -NATURE'S BLEND F1 M1 PO; -NATURE'S BLEND100 M2 PO; +NITR0.4T2 SL; -NITROSTAT0.4 M1 SL; -PROVENTIL HFA M18 GM INH; -PROZAC20 M2 PO; -TAB-A-VITE1 TA3 PO; +THIA-8 PO; -WELLBUTRIN XL150 MG PO; -XANAX1 MG PO; +ZOLP5TAB1 PO
[2017-02-02 21:18] VITALS: BP 135/82
[2017-02-03] MEDS: KETOROLAC 60 MG/2 ML VIAL IM ONE (01:33)
[2017-02-03] MEDS: SULFAMETH/TRIMETH DS 800/160MG 1 TAB PO ONE (01:34)
[2017-02-03 01:40] VITALS: BP 129/76
== END 2017-02-03 01:40 | disposition home or self-care (01) ==
LOC: MED 19:56
PROC: 3E033GC Introduction of Other Therapeutic Substance into Peripheral Vein, Percutaneous Approach (ICD-10-PCS; principal; 2017-02-02)
PROC: 4A02X4Z Measurement of Cardiac Electrical Activity, External Approach (ICD-10-PCS; 2017-02-02)
DX: L03.114 Cellulitis of left upper limb (principal); R03.0 Elevated blood-pressure reading, without diagnosis of hypertension
CPT/HCPCS: 93005; 96372; 99283; J1885

== ENCOUNTER 2018-09-29 18:22 | Inpatient (IN) | payer MEDICARE ==
[~2018-09-29] VITALS: Ht 172.7 cm; Wt 88.5 kg
[~2018-09-29 18:22] MED LIST changes: -HAB14T TD; +NICO1PAT16 TD; +THIA-34 PO; -THIA-8 PO
[2018-09-29 18:38] VITALS: BP 145/100
--- NOTE | 2018-09-29 19:20 | NUR ---
PT BIB SELF C/O ANXIETY SINCE SHE WAS D/C FROM REHAB FACILITY FOR DETOX FROM METH AND ALCOHOL. PT STATES SHE STAYED AT THE FACILTY FOR 3 DAYS AND WAS GIVEN ATIVAN AND IS NOW FEELING ANXIOUS AND THAT SHE WANTS TO USE AGAIN. PT IS LAYING IN BED, CALM, AWAKE AND ACTING APPROPRIATE AT THIS TIME. PMH ANXIETY, DEPRESSION, METH AND ALCOHOL ABUSE, CARDIAC ARRYTHMIAS .
[2018-09-29] MEDS ORDERED: [UNRECOGNIZED DRUG - CODE] IH (19:32)
--- NOTE | 2018-09-29 19:45 | NUR ---
DR FANG AT BEDSIDE EVALUATING PT.
[2018-09-29] MEDS ORDERED: NACL 0.9% 1,000 ML IV ONE (19:55)
[2018-09-29] MEDS ORDERED: LORazepam 2 MG/ML VIAL IVP ONE (19:55)
[2018-09-29 20:27] LABS: BASOPHILS % (AUTO) 0.5 % (0.0-2.0); EOSINOPHILS # (AUTO) 0.2 K/uL (0-0.4); EOSINOPHILS % (AUTO) 3.5 % (0.0-4.0); HEMATOCRIT 47.4 % (36-48); HEMOGLOBIN 15.6 g/dL (12.0-16.0); LYMPHOCYTES # (AUTO) 1.6 K/uL (2.5-16.5); LYMPHOCYTES % (AUTO) 23.4 % (20.5-51.1); MEAN CORPUSCULAR HEMOGLOBIN 29 pg (27-31); MEAN CORPUSCULAR HGB CONC 33 g/dL (33-37); MEAN CORPUSCULAR VOLUME 87.3 fL (80-94); MONOCYTES # (AUTO) 0.5 K/uL (0.8-1.0); MONOCYTES % (AUTO) 7.9 % (1.7-9.3); NEUTROPHILS # (AUTO) 4.3 K/uL (1.8-7.7); NEUTROPHILS % (AUTO) 64.7 % (42.2-75.2); PLATELET COUNT (AUTO) 219 K/uL (140-450); RED BLOOD CELL COUNT(AUTO) 5.43 MIL/uL (4.20-5.40); RED CELL DISTRIBUTION WIDTH 13.2 % (11.6-13.7); WHITE BLOOD COUNT (AUTO) 6.7 K/uL (4.8-10.8)
[2018-09-29 21:05] LABS: BARBITURATE, URINE NEG. ng/ml (NEG <=200); BENZODIAZEPINE, URINE POS. ng/mL (NEG <=200); CANNABINOID, URINE POS. ng/mL (NEG <=50); COCAINE, URINE NEG. ng/mL (NEG <=300); OPIATE, URINE NEG. ng/mL (NEG <=2000); PHENCYCLIDINE SCREEN,URINE NEG. ng/mL (NEG <=25)
[2018-09-29 21:12] LABS: CHLORIDE 105 mmol/L (98-107); CREATININE 0.8 mg/dL (0.6-1.3); GFR ARICAN-AMERICAN 100 mL/min (>90); GLUCOSE 89 mg/dL (74-106); SODIUM SERUM 140 mmol/L (136-145); UREA NITROGEN, BLOOD 18 mg/dL (7-18)
[2018-09-29 21:17] LABS: ALBUMIN 3.7 g/dL (3.4-5.0); ASPARTATE AMINOTRANSFERASE 15 U/L (15-37); TOTAL BILIRUBIN 0.3 mg/dL (0.0-1.0)
[2018-09-29 21:18] LABS: ACETAMINOPHEN < 0.5 ug/ml (10-30); SALICYLATE < 2.8 mg/dL (2.8-20.0)
[2018-09-29] MEDS ORDERED: KETOROLAC 30 MG/ML VIAL IVP ONE (21:30)
[2018-09-29] MEDS ORDERED: ACETAMINOPHEN 325 MG TAB PO PRN (22:20)
[2018-09-29] MEDS ORDERED: ONDANSETRON 4 MG/2 ML VIAL IM/IVP PRN (22:20)
[2018-09-29] MEDS ORDERED: DOCUSATE SODIUM 100 MG GELCAP PO PRN (22:20)
--- NOTE | 2018-09-29 22:29 | NUR ---
Dr. Montiel evaluating patient at bedside.
[2018-09-29 22:46] VITALS: BP 135/98
--- NOTE | 2018-09-29 22:46 | NUR ---
REPORT RECEIVED FROM ED NURSE AT BEDSIDE. PT IN STABLE CONDITION. AAOX4. INTRODUCED SELF TO PT. BOARD UPDATED. NO COMPLAINTS OF PAIN. NO SOB. AFEBRILE. NO MORE SHAKINESS. IV SITE L AC 20G RUNNING NS OPEN WIDE FROM ED. SKIN WARM, DRY, AND INTACT WITH NO OPEN WOUNDS. BED LOCKED IN LOW POSITION. CALL BEAR WITHIN REACH. SAFETY PRECAUTIONS IN PLACE. SZ PRECAUTIONS IN PLACE.
--- NOTE | 2018-09-29 22:54 | NUR ---
APatient will be admitted to care of DR MONTOYA. Admited to TELE. Will go to room 115. Belongings list completed. Report to FELICIA ALEMAN.
[2018-09-29 23:00] LABS: APPEARANCE,URINE CLEAR (CLEAR); BILIRUBIN,URINE NEGATIVE (NEGATIVE); BLOOD, URINE 2+ (NEGATIVE); COLOR,URINE YELLOW (YELLOW); LEUKOCYTE ESTERASE ,URINE NEGATIVE (NEGATIVE); NITRITE, URINE NEGATIVE (NEGATIVE); UGLUCOSE NEGATIVE (NEGATIVE)
[2018-09-29] MEDS: NACL 0.9% 1,000 ML IV SCH (23:00)
[2018-09-29 23:03] LABS: PROTHROMBIN TIME 9.5 secs (10.8-13.4)
[2018-09-29 23:10] LABS: RBC,URINE 20-50 /HPF (0-5); WBC,URINE 0-5 (RARE) /HPF (0-5)
[2018-09-29 23:14] LABS: CHOL/HDL RATIO 3.3 (1-4.5); FREE T4 (FREE THYROXINE) 0.83 ng/dL (0.76-1.46); MAGNESIUM 2.1 mg/dL (1.8-2.4); PHOSPHORUS 3.7 mg/dL (2.5-4.9); THYROID STIMULATING HORMONE 5.71 uIU/mL (0.34-3.74)
[2018-09-29] MEDS ORDERED: ZOLPIDEM 5 MG TAB PO PRN (23:20)
[2018-09-29] MEDS ORDERED: MECLIZINE 25 MG TAB PO PRN (23:25)
[2018-09-29] MEDS ORDERED: MULTIVITAMIN-12 10 ML, THIAMINE 100 MG, MAGNESIUM SULFATE 50% 2,000 MG, FOLIC ACID 1 MG... IV SCH ×5 (23:25)
--- NOTE | 2018-09-29 23:25 | NUR ---
LAB CALLED IN FOR CRITICAL TROPONIN LAB OF 0.277. MD NOTIFIED. NO CHANGES IN ORDERS.
[2018-09-29] MEDS ORDERED: ALBUTEROL SULFATE/IPRATROPIU 3 ML SOL IH PRN (23:30)
[2018-09-29] MEDS ORDERED: LORazepam 2 MG/ML VIAL IVP PRN (23:30)
[2018-09-30] VITALS: BP 120/86
[2018-09-30] MEDS ORDERED: MULTIVITAMIN-12 10 ML, THIAMINE 100 MG, MAGNESIUM SULFATE 50% 2,000 MG, FOLIC ACID 1 MG... IV SCH ×5
[2018-09-30] MEDS ORDERED: THIAMINE 200 MG/2 ML VIAL ONE (00:12)
[2018-09-30] MEDS ORDERED: MULTIVITAMIN-12 10 ML VIAL IV ONE (00:12)
[2018-09-30] MEDS ORDERED: NITROGLYCERIN 0.4 MG TAB SL PRN (00:15)
--- NOTE | 2018-09-30 00:15 | NUR ---
PT OFF THE FLOOR FOR A CT OF THE HEAD.
[2018-09-30] MEDS ORDERED: MAG SULF 2000 MG/WATER PREMIX 50 ML IV ONE (00:19)
[2018-09-30] MEDS ORDERED: hePARIN / DEXT 5% PREMIX 250 ML IV SCH ×2 (00:20→00:45)
[2018-09-30] MEDS ORDERED: HEPARIN PER PHARMACY MC PRN (00:20)
[2018-09-30] MEDS ORDERED: FOLIC ACID 5 MG/ML SYR ONE (00:23)
--- NOTE | 2018-09-30 00:25 | NUR ---
PT BACK ON THE FLOOR.
--- NOTE | 2018-09-30 00:35 | NUR ---
BANANA BAG HUNG AND RUNNING @120ML/HR.
--- NOTE | 2018-09-30 00:40 | NUR ---
RADIOLOGY CALLED. NEGATIVE RESULT ON CT OF THE HEAD.
--- NOTE | 2018-09-30 00:50 | NUR ---
NEW IV INSERTED FOR HEPARIN DRIP. L HAND 22G.
--- NOTE | 2018-09-30 01:57 | NUR ---
HEPARIN DRIP PROTOCOL STARTED. INITIAL HEPARIN BOLUS OF 3800 UNITS GIVEN IVP. PER PROTOCOL 770 UNITS/HR OR 7.7ML/HR.
--- NOTE | 2018-09-30 02:03 | NUR ---
AMBIEN GIVEN FOR INSOMNIA. PT TOLERATED WELL.
[2018-09-30 04:00] VITALS: BP 116/77
[2018-09-30] MEDS: LORazepam 1 MG TAB PO SCH ×2 (04:38→13:14)
--- NOTE | 2018-09-30 04:38 | NUR ---
ATIVAN GIVEN PO. PT TOLERATED WELL.
--- NOTE | 2018-09-30 05:32 | NUR ---
SYNTHROID GIVEN PO. PT TOLERATED WELL.
--- NOTE | 2018-09-30 05:41 | NUR ---
PT REQUESTED FOR NICODERM PATCH TO BE PUT ON EARLY. MD APPROVED. APPLIED TO LEFT UPPER ARM.
[2018-09-30] MEDS: NACL 0.9% 1,000 ML IV SCH (05:52)
[2018-09-30] MEDS ORDERED: LEVOTHYROXINE 0.05 MG TAB PO SCH (06:30)
--- NOTE | 2018-09-30 07:15 | NUR ---
REPORT GIVEN TO AM NURSE AT BEDSIDE. PT IN STABLE CONDITION.
--- NOTE | 2018-09-30 07:55 | NUR ---
CALLED TO BEDSIDE BY SITAL/RN TO ASSESS FOR SOB PATIENT AWAKE AND ALERT RESPONSIVE TO SUPERVISOR MILL VERBAL COMMANDS PATIENT STATES "THAT SHE IS FINE NOW I'M NOT SOB ONLY GOT SOB WHEN I AMBULATED TO BATHROOM AND BACK" REVIEWED PATIENT ASSESSMENT WITH FOREMENTIONED RN
[2018-09-30 08:00] VITALS: BP 137/87
[2018-09-30] MEDS ORDERED: CARVEDILOL 6.25 MG TAB PO SCH (08:00)
[2018-09-30 08:35] LABS: BASOPHILS % (AUTO) 0.4 % (0.0-2.0); EOSINOPHILS # (AUTO) 0.3 K/uL (0-0.4); EOSINOPHILS % (AUTO) 4.3 % (0.0-4.0); HEMATOCRIT 45.1 % (36-48); HEMOGLOBIN 14.4 g/dL (12.0-16.0); LYMPHOCYTES # (AUTO) 2.1 K/uL (2.5-16.5); LYMPHOCYTES % (AUTO) 33.6 % (20.5-51.1); MEAN CORPUSCULAR HEMOGLOBIN 28 pg (27-31); MEAN CORPUSCULAR HGB CONC 32 g/dL (33-37); MEAN CORPUSCULAR VOLUME 88.4 fL (80-94); MONOCYTES # (AUTO) 0.5 K/uL (0.8-1.0); MONOCYTES % (AUTO) 7.6 % (1.7-9.3); NEUTROPHILS # (AUTO) 3.4 K/uL (1.8-7.7); NEUTROPHILS % (AUTO) 54.1 % (42.2-75.2); PLATELET COUNT (AUTO) 214 K/uL (140-450); RED CELL DISTRIBUTION WIDTH 13.6 % (11.6-13.7); WHITE BLOOD COUNT (AUTO) 6.4 K/uL (4.8-10.8)
[2018-09-30 08:46] LABS: ANION GAP 13.2 (8-16); CARBON DIOXIDE 25.2 mmol/L (21-32); CREATININE 0.8 mg/dL (0.6-1.3); POTASSIUM 3.4 mmol/L (3.5-5.1)
--- NOTE | 2018-09-30 08:48 | NUR ---
PATIENT HAS BEEN SCREENED AND CATEGORIZED MODERATE NUTRITION RISK. PATIENT WILL BE SEEN WITHIN 3-5 DAYS OF ADMISSION. 10/02/18 10/04/[address]
[2018-09-30] MEDS ORDERED: FLUoxetine 20 MG CAP PO SCH (09:00)
[2018-09-30] MEDS ORDERED: buPROPion 75 MG TAB PO SCH (09:00)
[2018-09-30] MEDS ORDERED: NICOTINE TRANSD SYS 14 MG/24 HR PATCH TD SCH (09:00)
[2018-09-30] MEDS ORDERED: ATORVASTATIN 80 MG TAB PO SCH (09:00)
[2018-09-30] MEDS ORDERED: busPIRone 5 MG TAB PO SCH (09:00)
[2018-09-30] MEDS ORDERED: LISINOPRIL 5 MG TAB PO SCH (09:00)
[2018-09-30] MEDS ORDERED: THIAMINE 100 MG TAB PO SCH (09:00)
[2018-09-30] MEDS ORDERED: ASPIRIN 81 MG TAB.CHEW PO SCH (09:00)
[2018-09-30] MEDS ORDERED: FOLIC ACID 1 MG TAB PO SCH (09:00)
[2018-09-30] MEDS ORDERED: MULTIVITAMIN 1 TAB PO SCH (09:00)
--- NOTE | 2018-09-30 09:00 | NUR ---
ADMINISTERED MEDS TO PT ORDERED. TOLERATED WELL. NO SIGN OF DISTRESS NOTED. PT IS ON SEIZURE AND FALL PRECAUTION FOR ALCOHOL WITHDRAWAL. IS ON NPO . CALL LIGHT WITHIN PT REACH, INFORMED PT TO USE CALL LIGHT FOR ANY HELP. VERBALIZED UNDERSTANDING. WILL CONTINUE TO MONITOR PT.
[2018-09-30 12:00] VITALS: BP 114/69
--- NOTE | 2018-09-30 12:00 | NUR ---
CHECKED ON PT. SITTING ON HER BED. PASSED TRAY TO PT. IS ON CARDIAC DIET TO PT. STATES SHE IS SHAKY STILL, INFORMED HER TO NOTIFY NURSE WHILE SHE WANTS TO GET OUT OF BED OR FOR ANY HELP. VERBALIZED UNDERSTANDING. INFORMED HER THAT SHE IS ON ASPIRATION PRECAUTION, EAT OR DRINK SLOWLY, BY SITTING UP IN [place] POSITION IN HER BED. VERBALIZED UNDERSTANDING. CALL LIGHT WITHIN PT REACH. WILL CONTINUE TO MONITOR PT.
--- NOTE | 2018-09-30 14:00 | NUR ---
CHECKED ON PT. STATES SHE NEEDS TO LEAVE SHE HAS EMERGENCY SITUATION AT HOME. DR CANTU INFORMED. WILL TALK TO PT.
--- NOTE | 2018-09-30 14:10 | NUR ---
DR. CANTU 5TALEKD TO PT, EXPLAINED HER IN DETAIL BENEFIT AND RISK OF AMA. PT STATES WILL FOLLOW UP WITH PCP, VERBALIZED UNDERSTANDING. SIGNED THE AMA PAPER. WAITING FOR PRESCRIPTION. IV DISCONTINUED.
[2018-09-30] MEDS ORDERED: LIB25 PO (14:35)
[2018-09-30] MEDS ORDERED: ZOLP5TAB1 PO (14:35)
--- NOTE | 2018-09-30 14:48 | NUR ---
GAVE PRESCRIPTION TO PT. MAKING PHONE CALL FOR RIDE. GOT TELE BOX FROM PT.
--- NOTE | 2018-09-30 14:55 | NUR ---
PT LEFT AMA AT 1455 FROM HOSPITAL. PAPER SIGNED.
[2018-10-06 12:32] LABS: T4 (THYROXINE) 5.3 ug/dL (4.5-12.0)
== END 2018-09-30 14:55 | disposition left against medical advice (07) | DRG 812 ==
LOC: MED 18:22 → MTU 22:23
PROVIDERS: ADMIT General Practice; ATTEND General Practice
DX: T43.621A Poisoning by amphetamines, accidental (unintentional), initial encounter (principal); G92 Toxic encephalopathy; E02 Subclinical iodine-deficiency hypothyroidism; E78.5 Hyperlipidemia, unspecified; F10.239 Alcohol dependence with withdrawal, unspecified; I10 Essential (primary) hypertension; F90.9 Attention-deficit hyperactivity disorder, unspecified type; F43.10 Post-traumatic stress disorder, unspecified; G47.9 Sleep disorder, unspecified; E78.1 Pure hyperglyceridemia; E87.6 Hypokalemia; E66.3 Overweight; F41.8 Other specified anxiety disorders; Z53.21 Procedure and treatment not carried out due to patient leaving prior to being seen by health care provider; Z88.5 Allergy status to narcotic agent; Z79.82 Long term (current) use of aspirin; Z79.899 Other long term (current) drug therapy; I25.2 Old myocardial infarction; Z98.891 History of uterine scar from previous surgery; Z82.49 Family history of ischemic heart disease and other diseases of the circulatory system; Z68.29 Body mass index [BMI] 29.0-29.9, adult; Y92.89 Other specified places as the place of occurrence of the external cause
CPT/HCPCS: 36415; 70450; 71045; 80048; 80053; 80305; 81001; 81025; 82140; 82150; 83036; 83690; 83735; 83880; 84100; 84436; 84439; 84443; 84479; 84484; 85025; 85610; 85730; 87081; 93005; 93880; 96361; 96374; 96375; 99285; A9153; G0480; G0482; J1644; J1885; J2060; J3411; J3475; J3490; J7030; Q0092

== ENCOUNTER 2018-12-05 00:31 | Emergency (ER) | payer BC, MEDICARE ==
[~2018-12-05] VITALS: Ht 172.7 cm; Wt 93.0 kg
[~2018-12-05 00:31] MED LIST changes: -ALPR0.5T20 PO; -BACTO TP; -BUPR-160 PO; +LIB25 PO; +[UNRECOGNIZED DRUG - CODE] IH
[2018-12-05 00:36] VITALS: BP 116/63
--- NOTE | 2018-12-05 00:40 | NUR ---
PT TAKEN TO BED 9
--- NOTE | 2018-12-05 00:45 | NUR ---
PATIENT PRESENTS ER WITH C/O PAIN TO THE RIGHT FOOT. PT HAS SOME REDNESS AND SWELLING TO THE FOOT/TOES. PT HAS BEEN TAKING METH AND SMOKES. PT IS A/OX 4. PT STATED THAT SHE PLANNED ON GOING TO REHAB IN A FEW DAYS; PATIENT STATES PAIN OF 5/10 AT THIS TIME; VSS; PATIENT POSITIONED FOR COMFORT; HOB ELEVATED; BEDRAILS UP X2; BED DOWN. ER MD MADE AWARE OF PT STATUS.
--- NOTE | 2018-12-05 01:09 | NUR ---
Dr. Beebe evaluating patient at bedside.
--- NOTE | 2018-12-05 01:30 | NUR ---
PT REFUSED U/A. RADHA ANGUIANO MADE AWARE
[2018-12-05 02:42] VITALS: BP 116/63
--- NOTE | 2018-12-05 02:42 | NUR ---
Patient discharged with v/s stable. Written and verbal after care instructions given and explained. Patient alert, oriented and verbalized understanding of instructions. Ambulatory with steady gait. All questions addressed prior to discharge. ID band removed. Patient advised to follow up with PMD. Rx of NITROGLYCERIN, PROZAC, BUSPAR, BUPROPION WAS given. Patient educated on indication of medication including possible reaction and side effects. Opportunity to ask questions provided and answered. PT DID NOT SIGN HER D/S PAPAERS BUT TOOK HER PRESCRIPTIONS AND HER INHOME CARE INSTRUCTIONS AND UNDERSTOOD THEM.
== END 2018-12-05 02:42 | disposition home or self-care (01) ==
LOC: MED 00:31
DX: M79.89 Other specified soft tissue disorders (principal); Z76.0 Encounter for issue of repeat prescription; Z88.5 Allergy status to narcotic agent; Z79.82 Long term (current) use of aspirin; Z79.899 Other long term (current) drug therapy
CPT/HCPCS: 99283

== ENCOUNTER 2024-07-27 10:18 | Emergency (ER) | payer BC ==
[~2024-07-27] VITALS: Ht 172.7 cm; Wt 90.7 kg
[~2024-07-27 10:18] MED LIST changes: +CHLO-757 PO; +FLUT100P IH; -LIB25 PO; -[UNRECOGNIZED DRUG - CODE] IH
[2024-07-27 10:23] VITALS: BP 137/88; PULSE 110; RESP 16; TEMP 97.7; O2SAT 97
[2024-07-27 10:45] VITALS: O2SAT 97
[2024-07-27] MEDS: KETOROLAC 60 MG/2 ML VIAL IM ONE (10:59)
[2024-07-27] MEDS ORDERED: IBUP-2213 PO (11:21)
[2024-07-27] MEDS ORDERED: CEPH-588 PO (11:21)
[2024-07-27 12:42] VITALS: PULSE 88
== END 2024-07-27 12:42 | disposition home or self-care (01) ==
LOC: MED 10:18
DX: S81.802A Unspecified open wound, left lower leg, initial encounter (principal); L08.89 Other specified local infections of the skin and subcutaneous tissue; L03.116 Cellulitis of left lower limb; R03.0 Elevated blood-pressure reading, without diagnosis of hypertension; F17.210 Nicotine dependence, cigarettes, uncomplicated; F15.90 Other stimulant use, unspecified, uncomplicated; Z79.899 Other long term (current) drug therapy; Z88.5 Allergy status to narcotic agent; W18.39XA Other fall on same level, initial encounter; Y92.89 Other specified places as the place of occurrence of the external cause; Y93.89 Activity, other specified; Y99.8 Other external cause status
CPT/HCPCS: 96372; 99283; J1885